=== PATIENT | female | born 1930 | race Caucasian/White ===

== ENCOUNTER 2016-06-14 08:19 | Day surgery (SDC) | payer OTHER, MEDICARE ==
[2016-06-14] MEDS ORDERED: D5 LR 1000 ML 1,000 ML IV ONE (08:39)
[2016-06-14] MEDS ORDERED: DIPRIVAN VIAL 20 ML ONE (09:48)
[2016-06-14 10:38] VITALS: BP 114/60
== END 2016-06-14 10:20 | disposition home or self-care (01) ==
LOC: SURG1 08:19
PROVIDERS: ATTEND Internal Medicine Gastroenterology
PROC: 0DB68ZX Excision of Stomach, Via Natural or Artificial Opening Endoscopic, Diagnostic (ICD-10-PCS; principal; 2016-06-14 10:00)
PROC: 0DB88ZX Excision of Small Intestine, Via Natural or Artificial Opening Endoscopic, Diagnostic (ICD-10-PCS; principal; 2016-06-14 10:00)
PROC: 0DJ08ZZ Inspection of Upper Intestinal Tract, Via Natural or Artificial Opening Endoscopic (ICD-10-PCS; principal; 2016-06-14 10:00)
PROC: 0D757ZZ Dilation of Esophagus, Via Natural or Artificial Opening (ICD-10-PCS; principal; 2016-06-14 10:00)
DX: R13.19 Other dysphagia (principal); R10.13 Epigastric pain; K21.9 Gastro-esophageal reflux disease without esophagitis; K22.2 Esophageal obstruction; K44.9 Diaphragmatic hernia without obstruction or gangrene; K29.60 Other gastritis without bleeding; B96.81 Helicobacter pylori [H. pylori] as the cause of diseases classified elsewhere
CPT/HCPCS: 99100; A4217; J3490; J7120

== ENCOUNTER → 2017-01-23 | Outpatient (CLI) | payer OTHER, MEDICARE ==
[2017-01-23 15:12] LABS: FREE T4 (FREE THYROXINE) 0.96 ng/dL (0.76-1.46); TSH (3RD GENERATION) 3.657 uIU/mL (0.358-3.74)
[2017-01-23 15:17] LABS: CRYPTOSPORIDIUM PARVUM ANTIGEN NEGATIVE (NEGATIVE); GIARDIA LAMBLIA ANTIGEN NEGATIVE (NEGATIVE); STOOL FOR WBC POSITIVE (NEGATIVE)
== END ==
LOC: LAB 14:10
PROVIDERS: ATTEND Internal Medicine Gastroenterology
DX: K59.1 Functional diarrhea (principal); E03.8 Other specified hypothyroidism
CPT/HCPCS: 36415; 82705; 83630; 84439; 84443; 87045; 87328; 87329; 87336; 87427; 87493; 87899